=== PATIENT | female | born 1995 | race Asian ===

== ENCOUNTER 2018-02-21 19:14 | Emergency (ER) | payer SELFPAY ==
[2018-02-21] MEDS ORDERED: Tetan/Diph/Pertus SYR(Tdap)* 0.5 ML SYR(BOOSTRIX) use SYR IM ONE (19:52)
--- NOTE | 2018-02-21 21:10 | ED ---
Laceration/Wound HPI - HPI Summary HPI Summary: Laceration to left lateral sternal thumb involving thumbnail from knife while cutting vegetables. No bleeding. Vaccinations up-to-date. - History of Current Complaint Stated Complaint: FINGER LACERATION Time Seen by Provider: 02/21/18 19:50 Hx Obtained From: Patient Mechanism of Injury: Sharp/Blunt Trauma Aggravating: Movement Alleviating: Nothing Timing: Constant Onset Severity: Moderate Current Severity: Moderate Pain Intensity: 6 Pain Scale Used: 0-10 Numeric Associated Signs & Symptoms: Negative - Allergy/Home Medications Allergies/Adverse Reactions: Allergies Allergy/AdvReac Type Severity Reaction Status Date / Time No Known Allergies Allergy Verified 02/21/18 19:35 Home Medications: Home Medications NK [No Home Medications Reported] 02/21/18 [History Confirmed 02/21/18] PMH/Surg Hx/FS Hx/Imm Hx Endocrine/Hematology History: Denies: Hx Anticoagulant Therapy Cardiovascular History: Denies: Hx Cardiac Arrest History: Denies: Hx Dialysis Neurological History: Denies: Hx CVA - Immunization History Date of Tetanus Vaccine: 2016 Infectious Disease History: No Infectious Disease History: Denies: Traveled Outside the [place] in Last 30 Days - Social History Occupation: Student Alcohol Use: None Substance Use Type: Reports: None Smoking Status (MU): Never Smoked Tobacco Review of Systems Constitutional: Negative Eyes: Negative ENT: Negative Cardiovascular: Negative Respiratory: Negative Gastrointestinal: Negative Genitourinary: Negative Musculoskeletal: Negative Skin: Other Neurological: Negative Psychological: Normal All Other Systems Reviewed And Are Negative: Yes Physical Exam - Summary Physical Exam Summary: Very superficial laceration involving lateral portion of distal left thumb with slight marking across left thumbnail. Does not penetrate through the nail. Does not penetrate through dermis. Triage Information Reviewed: Yes Vital Signs On Initial Exam: Initial Vitals Temp Pulse Resp BP Pulse Ox 98.7 F 87 18 105/64 98 02/21/18 19:31 02/21/18 19:31 02/21/18 19:31 02/21/18 19:31 02/21/18 19:31 Vital Signs Reviewed: Yes Appearance: Positive: Well-Appearing Skin: Positive: Warm Head/Face: Positive: Normal Head/Face Inspection Eyes: Positive: Normal Neck: Positive: Supple Respiratory/Lung Sounds: Positive: Clear to Auscultation Cardiovascular: Positive: Normal Abdomen Description: Positive: Nontender Musculoskeletal: Positive: Normal Neurological: Positive: Normal Psychiatric: Positive: Normal AVPU Assessment: Alert - Molina Coma Scale Best Eye Response: 4 - Spontaneous Best Motor Response: 6 - Obeys Commands Best Verbal Response: 5 - Oriented Coma Scale Total: 15 Procedures - Laceration/Wound Repair 1 Location: upper extremity Description: Linear Length, Depth and Shape: 2cm x 2mm Betadine Prep?: Yes Irrigated w/ Saline (ccs): 30 Laceration/Wound Explored: clean Closure: Skin Adhesive Debridement: minimal Number of Sutures: 0 Diagnostics - Vital Signs Vital Signs Temp Pulse Resp BP Pulse Ox 02/21/18 19:31 98.7 F 87 18 105/64 98 - Laboratory Lab Statement: Any lab studies that have been ordered have been reviewed, and results considered in the medical decision making process. Laceration Repair Course/Dx - Course Course Of Treatment: Laceration to left lateral sternal thumb involving thumbnail from knife while cutting vegetables. No bleeding. Vaccinations up-to -date. Physical exam: Very superficial laceration involving lateral portion of distal left thumb with slight marking across left thumbnail. Does not penetrate through the nail. Does not penetrate through dermis. Wound cleaned. Wound approximated with Dermabond. - Clinical Impression Provider Diagnoses: Laceration Discharge - Sign-Out/Discharge Documenting (check all that apply): Patient Departure - Discharge Plan Condition: Stable Disposition: HOME Patient Education Materials: Finger Laceration (ED), Skin Adhesive Care (ED) Referrals: No Primary Care Phys,NOPCP [Primary Care Provider] - Additional Instructions: Starting tomorrow may wash with warm running water and soap. Do not submerge. Keep clean and dry and protected when not washing. Return to the ED for any new or worsening symptoms. - Billing Disposition and Condition Condition: STABLE Disposition: Home
[2018-02-21 21:18] VITALS: BP 121/76
== END 2018-02-21 21:17 | disposition home or self-care (01) ==
LOC: ED 19:14
DX: S61.012A Laceration without foreign body of left thumb without damage to nail, initial encounter (principal); W26.0XXA Contact with knife, initial encounter; Y93.G1 Activity, food preparation and clean up; Y92.9 Unspecified place or not applicable; Z23 Encounter for immunization
CPT/HCPCS: 12001; 90471; 99282